=== PATIENT | female | born 1995 | race Caucasian/White ===

== ENCOUNTER 2017-12-17 19:40 | Emergency (ER) | payer BC ==
[~2017-12-17] VITALS: Ht 167.6 cm; Wt 70.4 kg
[2017-12-17] MEDS ORDERED: LORazepam 1 MG tablet PO ONE (20:00)
[2017-12-17] MEDS ORDERED: LITH450T2 PO (20:32)
[2017-12-17] MEDS ORDERED: QUET-1 PO (20:32)
[2017-12-17] MEDS ORDERED: LAMO25TA94 PO (20:32)
[2017-12-17] MEDS ORDERED: MULT-1085 PO (20:32)
[2017-12-17 20:33] LABS: BASOPHILS % (AUTO) 0.2 % (0-1); EOSINOPHILS # (AUTO) 0.1 X10'3 (0-0.9); HEMATOCRIT 41.8 % (35.0-45.0); HEMOGLOBIN 14.8 g/dl (12.0-16.0); LYMPHOCYTES # (AUTO) 1.5 X10'3 (1.1-4.8); LYMPHOCYTES % (AUTO) 15.4 % (21-51); MEAN CORPUSCULAR HEMOGLOBIN 32.8 PG (27.0-31.0); MEAN CORPUSCULAR HGB CONC 35.5 % (33.0-36.5); MEAN CORPUSCULAR VOLUME 92.4 FL (78-98); MONOCYTES # (AUTO) 0.8 X10'3 (0-0.9); MONOCYTES % (AUTO) 7.6 % (2-12); NEUTROPHILS # (AUTO) 7.5 X10'3 (1.8-7.7); NEUTROPHILS % (AUTO) 75.8 % (42-75); PLATELET COUNT 278 X10'3 (140-440); RED BLOOD COUNT 4.52 X10'6 (4.20-5.60); RED CELL DISTRIBUTION WIDTH 12.7 % (11.5-14.5); WHITE BLOOD COUNT 9.8 X10'3 (4.5-11.0)
[2017-12-17 20:56] LABS: ALANINE AMINOTRANSFERASE 16 U/L (12-78); ALBUMIN 4.8 G/DL (3.4-5.0); ALBUMIN/GLOBULIN RATIO 1.3 (1.1-1.5); ALKALINE PHOSPHATASE 86 IU/L (46-116); ANION GAP 10 (8-16); ASPARTATE AMINO TRANSFERASE 23 U/L (10-37); BILIRUBIN,TOTAL 0.8 MG/DL (0.1-1.0); BLOOD UREA NITROGEN 13 MG/DL (7-18); BUN/CREATININE RATIO 13.5 (6.6-38.0); CALCIUM 9.3 MG/DL (8.5-10.1); CHLORIDE 102 MMOL/L (99-107); CREATININE 0.96 MG/DL (0.40-0.90); GLUCOSE 102 MG/DL (70-104); POTASSIUM 4.2 MMOL/L (3.5-5.1); SODIUM 139 MMOL/L (135-145); TOTAL CARBON DIOXIDE 26.6 MMOL/L (24-32); TOTAL PROTEIN 8.6 G/DL (6.4-8.2); eGFR 72 ML/MIN
[2017-12-17 20:58] LABS: ETHANOL < 0.010 GM/DL (0.0-0.010)
[2017-12-17] MEDS ORDERED: propranolol 10mg tablet PO ONE (21:15)
[2017-12-17] MEDS ORDERED: cloNIDine 0.1 mg tablet PO ONE (21:15)
[2017-12-17 22:33] LABS: URINE HCG NEGATIVE (NEG)
[2017-12-17 22:44] LABS: URINE AMPHETAMINE SCREEN NEGATIVE (Neg); URINE BARBITUATE SCREEN NEGATIVE (Neg); URINE BENZODIAZEPINES SCREEN NEGATIVE (Neg); URINE CANNABINOID SCREEN POSITIVE (Neg); URINE COCAINE SCREEN NEGATIVE (Neg); URINE METHADONE SCREEN NEGATIVE (Neg); URINE OPIATE SCREEN NEGATIVE (Neg); URINE PHENCYCLIDINE SCREEN NEGATIVE (Neg)
[2017-12-18] MEDS ORDERED: OLANZapine 5mg rapidly disint. tablet PO ONE (03:00)
[2017-12-18] MEDS ORDERED: LAMO150T2 PO (06:21)
[2017-12-18] MEDS ORDERED: LITH150C8 PO (07:52)
[2017-12-18] MEDS: nicotine 7mg patch - 24hr TD SCH (08:20)
[2017-12-18] MEDS ORDERED: lithium carbonate 150mg capsule PO SCH (08:26)
[2017-12-18] MEDS: lamoTRIgine 100mg tablet PO SCH (09:17)
[2017-12-18] MEDS: multivitamins, therapeutics tablet PO SCH (09:17)
[2017-12-18] MEDS ORDERED: olanzapine 10mg tablet PO ONE ×2 (11:25→17:10)
[2017-12-18] MEDS ORDERED: diphenhydrAMINE 25mg capsule PO ONE (14:55)
[2017-12-18] MEDS ORDERED: LORazepam 1 MG tablet PO ONE (14:55)
[2017-12-18] MEDS ORDERED: OLANZapine 2.5MG tablet PO ONE (14:55)
[2017-12-18] MEDS ORDERED: LORazepam 2 mg/ml vial IM ONE (17:10)
[2017-12-18] MEDS: lithium carbonate 150mg capsule PO SCH (20:30)
[2017-12-18] MEDS ORDERED: quetiapine 100mg tablet PO SCH (21:00)
[2017-12-19 06:10] VITALS: BP 132/56
[2017-12-19] MEDS: nicotine 7mg patch - 24hr TD SCH (08:00)
[2017-12-19] MEDS: multivitamins, therapeutics tablet PO SCH (11:18)
[2017-12-19] MEDS: lithium carbonate 150mg capsule PO SCH (11:18)
[2017-12-19] MEDS: lamoTRIgine 100mg tablet PO SCH (11:23)
== END 2017-12-19 18:01 ==
LOC: ER 19:41
DX: F41.9 Anxiety disorder, unspecified (principal); F15.90 Other stimulant use, unspecified, uncomplicated; F31.9 Bipolar disorder, unspecified; F17.200 Nicotine dependence, unspecified, uncomplicated; Z79.899 Other long term (current) drug therapy; Z60.2 Problems related to living alone
CPT/HCPCS: 36415; 80053; 80178; 80305; 80320; 81025; 84443; 85025; 96372; 99285; A4353; J2060; J3490; Q0163